=== PATIENT | female | born 1960 | race Native Hawaiian/Other Pacific Islander ===

== ENCOUNTER 2018-02-15 18:01 | Emergency (ER) | payer OTHER ==
[~2018-02-15] VITALS: Ht 177.8 cm; Wt 122.5 kg
[~2018-02-15 18:01] MED LIST: GABA300C2 PO; PANT40TA PO; PERCOCET1 TA3 PO; PROM25TA52 PO; REQUIP0.25 MG OR; ROBAXIN-750750 MG PO; VENLAFAXINE75 M2 PO; ZESTRIL40 MG PO
[2018-02-15 19:55] VITALS: BP 153/87; TEMP 97.7
== END 2018-02-15 20:11 | disposition home or self-care (01) ==
LOC: ED 18:01
DX: S93.492A Sprain of other ligament of left ankle, initial encounter (principal); W17.89XA Other fall from one level to another, initial encounter; Y92.89 Other specified places as the place of occurrence of the external cause
CPT/HCPCS: 99282